=== PATIENT | female | born 1975 | race Caucasian/White ===

== ENCOUNTER 2018-02-16 11:55 | Day surgery (SDC) | payer OTHER ==
[2018-02-16] MEDS ORDERED: FENTAnyl 50 MCG/ML VIAL (14:17)
[2018-02-16] MEDS ORDERED: PROPOFOL 20 ML (14:17)
[2018-02-16] MEDS ORDERED: MIDAZOLAM 1 MG/ML 2 ML INJ (14:17)
== END 2018-02-16 15:57 | disposition home or self-care (01) ==
LOC: GIL 11:55
DX: K21.0 Gastro-esophageal reflux disease with esophagitis (principal); K29.70 Gastritis, unspecified, without bleeding; E66.01 Morbid (severe) obesity due to excess calories; Z68.42 Body mass index [BMI] 45.0-49.9, adult
CPT/HCPCS: 43239; 88305; 88312; 88313